=== PATIENT | male | born 1955 | race African-American/Black ===

== ENCOUNTER 2021-11-21 16:23 | Inpatient (IN) | payer MEDICARE, BC ==
[2021-11-21] MEDS ORDERED: MAGNESIUM CITRATE 300 ML BOTTLE PO PRN (18:33)
[2021-11-21] MEDS ORDERED: MAGNESIUM HYDROX 2400MG/30ML ORAL SUSPENSION 30 ML CUP PO PRN (18:33)
[2021-11-21] MEDS ORDERED: ONDANSETRON *ODT* 4 MG TABLET SL PRN (18:33)
[2021-11-21] MEDS ORDERED: ACETAMINOPHEN 325 MG TABLET (FP) PO PRN ×2 (18:33)
[2021-11-21] MEDS ORDERED: IBUPROFEN 400 MG TABLET (FP) PO PRN (18:33)
[2021-11-21] MEDS ORDERED: ALBUTEROL SO4 HFA INHALER IH PRN (18:33)
[2021-11-21] MEDS ORDERED: MENTHOL/PHENOL 1 EACH UD MM PRN (18:33)
[2021-11-21] MEDS ORDERED: LOPERAMIDE HCL 2 MG CAPSULE PO PRN (18:33)
[2021-11-21] MEDS ORDERED: MAG HYDROX/AL HYDROX/SIMETH 30 ML UNIT-DOSE CUP PO PRN (18:33)
[2021-11-21] MEDS ORDERED: BISMUTH SUBSALICYLATE 524 MG/30 ML PO PRN (18:33)
[2021-11-21] MEDS ORDERED: methaDONE HCL 10 MG TABLET (FOR DETOX USE ONLY) PO ONE (18:41)
[2021-11-21] MEDS ORDERED: cloNIDine HCL 0.1 MG TABLET PO PRN (18:41)
[2021-11-21 19:48] VITALS: BMI 24.7
[2021-11-21] MEDS: MELATONIN 5 MG TABLETS PO SCH (23:00)
[2021-11-21] MEDS: THIAMINE HCL 100 MG TABLET (FP) PO SCH (23:00)
[2021-11-22] MEDS: PRENATAL VITAMINS W/ FOLIC ACID TABLET (FP) PO SCH (11:47)
[2021-11-22 12:46] LABS: HEMATOCRIT 43.2 % (35.4-49); HEMOGLOBIN 13.6 GM/dL (11.7-16.9); MCH 28.9 pg (25.7-33.7); MCHC 31.6 g/dl (32.0-35.9); MEAN CELL VOLUME 91.4 fl (80-96); MEAN PLT VOLUME 8.2 fl (7.5-11.1); PLATELET COUNT 306 10^3/uL (134-434); RBC 4.73 M/mm3 (4.00-5.60); RDW 14.5 % (11.9-15.9)
[2021-11-22 13:14] LABS: CALCIUM 9.6 mg/dL (8.5-10.1)
[2021-11-22 13:15] LABS: ALBUMIN 3.4 g/dl (3.4-5.0); BLOOD UREA NITROGEN 13.4 mg/dL (7-18)
[2021-11-22 13:19] LABS: TOT PROT 7.1 g/dl (6.4-8.2)
[2021-11-22 13:20] LABS: BILIRUBIN,TOTAL 0.7 mg/dL (0.2-1)
[2021-11-22] MEDS: THIAMINE HCL 100 MG TABLET (FP) PO SCH (22:43)
[2021-11-22] MEDS: MELATONIN 5 MG TABLETS PO SCH (22:43)
[2021-11-22] MEDS: METHOCARBAMOL 500 MG TABLET PO PRN (22:43)
[2021-11-22] MEDS: hydrOXYzine PAMOATE 25 MG CAPSULE (FP) PO PRN (22:43)
[2021-11-23] MEDS ORDERED: methaDONE HCL 10 MG TABLET (FOR DETOX USE ONLY) PO ONE (10:00)
[2021-11-23 10:08] LABS: SARS-CoV-2 NAA Not Detected (Not Detected)
[2021-11-23] MEDS: PRENATAL VITAMINS W/ FOLIC ACID TABLET (FP) PO SCH (11:35)
[2021-11-23] MEDS: METHOCARBAMOL 500 MG TABLET PO PRN (11:35)
[2021-11-23] MEDS: hydrOXYzine PAMOATE 25 MG CAPSULE (FP) PO PRN (11:35)
[2021-11-23] MEDS: THIAMINE HCL 100 MG TABLET (FP) PO SCH (23:12)
[2021-11-23] MEDS: MELATONIN 5 MG TABLETS PO SCH (23:12)
[2021-11-24] MEDS: METHOCARBAMOL 500 MG TABLET PO PRN (01:01)
[2021-11-24] MEDS: hydrOXYzine PAMOATE 25 MG CAPSULE (FP) PO PRN (01:01)
[2021-11-24] MEDS: PRENATAL VITAMINS W/ FOLIC ACID TABLET (FP) PO SCH (10:04)
[2021-11-24 13:46] VITALS: BP 145/85; PULSE 57; TEMP 97.5
== END 2021-11-24 14:33 | disposition other institution (70) | DRG 897 ==
LOC: YASAS 16:23 → Y6N 19:09
PROVIDERS: ADMIT Allergy & Immunology; ATTEND Allergy & Immunology
PROC: HZ2ZZZZ Detoxification Services for Substance Abuse Treatment (ICD-10-PCS; principal; 2021-11-21)
DX: F11.23 Opioid dependence with withdrawal (principal); F14.20 Cocaine dependence, uncomplicated; F17.210 Nicotine dependence, cigarettes, uncomplicated; E78.00 Pure hypercholesterolemia, unspecified; J45.909 Unspecified asthma, uncomplicated
CPT/HCPCS: 36415; 80053; 85027; 86780; 87811; C9803; U0003; U0005

== ENCOUNTER 2021-11-24 14:46 | Inpatient (IN) | payer MEDICARE, BC ==
[2021-11-24] MEDS ORDERED: guaiFENesin 200 MG/10 ML 10 ML UNIT-DOSE CUPS PO PRN (15:22)
[2021-11-24] MEDS ORDERED: MENTHOL/PHENOL 1 EACH UD MM PRN (15:22)
[2021-11-24] MEDS ORDERED: MAGNESIUM HYDROX 2400MG/30ML ORAL SUSPENSION 30 ML CUP PO PRN (15:22)
[2021-11-24] MEDS ORDERED: MAGNESIUM CITRATE 300 ML BOTTLE PO PRN (15:22)
[2021-11-24] MEDS ORDERED: MAG HYDROX/AL HYDROX/SIMETH 30 ML UNIT-DOSE CUP PO PRN (15:22)
[2021-11-24] MEDS ORDERED: LOPERAMIDE HCL 2 MG CAPSULE PO PRN (15:22)
[2021-11-24] MEDS ORDERED: hydrOXYzine PAMOATE 25 MG CAPSULE (FP) PO PRN (15:22)
[2021-11-24] MEDS ORDERED: P-EPHED 60MG/TRIPROLIDI 2.5MG TABLET PO PRN (15:22)
[2021-11-24] MEDS ORDERED: NICOTINE 10 MG CARTRIDGE (INHALER) IH PRN (15:22)
[2021-11-24] MEDS: THIAMINE HCL 100 MG TABLET (FP) PO SCH (22:18)
[2021-11-24] MEDS: MELATONIN 5 MG TABLETS PO SCH (22:18)
[2021-11-25] MEDS: PRENATAL VITAMINS W/ FOLIC ACID TABLET (FP) PO SCH (10:40)
[2021-11-25] MEDS: NICOTINE 7 MG/24 HOURS TOPICAL PATCH TD SCH (10:40)
[2021-11-25] MEDS: MELATONIN 5 MG TABLETS PO SCH (21:25)
[2021-11-25] MEDS: THIAMINE HCL 100 MG TABLET (FP) PO SCH (21:25)
[2021-11-26] MEDS: PRENATAL VITAMINS W/ FOLIC ACID TABLET (FP) PO SCH (09:53)
[2021-11-26] MEDS: NICOTINE 7 MG/24 HOURS TOPICAL PATCH TD SCH (09:54)
[2021-11-26] MEDS ORDERED: TUBERCULIN PPD 5 TU/0.1ML VIAL ID ONE (11:50)
[2021-11-26] MEDS: MELATONIN 5 MG TABLETS PO SCH (21:33)
[2021-11-26] MEDS: THIAMINE HCL 100 MG TABLET (FP) PO SCH (21:33)
[2021-11-27] MEDS: NICOTINE 7 MG/24 HOURS TOPICAL PATCH TD SCH (10:17)
[2021-11-27] MEDS: PRENATAL VITAMINS W/ FOLIC ACID TABLET (FP) PO SCH (10:18)
[2021-11-27] MEDS: THIAMINE HCL 100 MG TABLET (FP) PO SCH (21:09)
[2021-11-27] MEDS: MELATONIN 5 MG TABLETS PO SCH (21:09)
[2021-11-28] MEDS: PRENATAL VITAMINS W/ FOLIC ACID TABLET (FP) PO SCH (09:40)
[2021-11-28] MEDS: NICOTINE 7 MG/24 HOURS TOPICAL PATCH TD SCH (09:41)
[2021-11-28] MEDS: MELATONIN 5 MG TABLETS PO SCH (21:33)
[2021-11-28] MEDS: THIAMINE HCL 100 MG TABLET (FP) PO SCH (21:33)
[2021-11-29] MEDS: NICOTINE 7 MG/24 HOURS TOPICAL PATCH TD SCH (09:18)
[2021-11-29] MEDS: PRENATAL VITAMINS W/ FOLIC ACID TABLET (FP) PO SCH (09:18)
[2021-11-29] MEDS: MELATONIN 5 MG TABLETS PO SCH (21:02)
[2021-11-29] MEDS: THIAMINE HCL 100 MG TABLET (FP) PO SCH (21:02)
[2021-11-30] MEDS: PRENATAL VITAMINS W/ FOLIC ACID TABLET (FP) PO SCH (09:11)
[2021-11-30] MEDS: NICOTINE 7 MG/24 HOURS TOPICAL PATCH TD SCH (09:11)
[2021-11-30] MEDS: MELATONIN 5 MG TABLETS PO SCH (21:39)
[2021-11-30] MEDS: THIAMINE HCL 100 MG TABLET (FP) PO SCH (21:39)
[2021-12-01] MEDS: NICOTINE 7 MG/24 HOURS TOPICAL PATCH TD SCH (09:49)
[2021-12-01] MEDS: PRENATAL VITAMINS W/ FOLIC ACID TABLET (FP) PO SCH (09:49)
[2021-12-01] MEDS: MELATONIN 5 MG TABLETS PO SCH (21:16)
[2021-12-01] MEDS: THIAMINE HCL 100 MG TABLET (FP) PO SCH (21:16)
[2021-12-02] MEDS: PRENATAL VITAMINS W/ FOLIC ACID TABLET (FP) PO SCH (09:16)
[2021-12-02] MEDS: NICOTINE 7 MG/24 HOURS TOPICAL PATCH TD SCH (09:17)
[2021-12-02] MEDS: THIAMINE HCL 100 MG TABLET (FP) PO SCH (21:24)
[2021-12-02] MEDS: MELATONIN 5 MG TABLETS PO SCH (21:24)
[2021-12-02] MEDS: IBUPROFEN 400 MG TABLET (FP) PO PRN (21:25)
[2021-12-03] MEDS: NICOTINE 7 MG/24 HOURS TOPICAL PATCH TD SCH (09:41)
[2021-12-03] MEDS: PRENATAL VITAMINS W/ FOLIC ACID TABLET (FP) PO SCH (09:41)
[2021-12-03] MEDS: THIAMINE HCL 100 MG TABLET (FP) PO SCH (21:21)
[2021-12-03] MEDS: MELATONIN 5 MG TABLETS PO SCH (21:21)
[2021-12-04] MEDS: NICOTINE 7 MG/24 HOURS TOPICAL PATCH TD SCH (10:10)
[2021-12-04] MEDS: PRENATAL VITAMINS W/ FOLIC ACID TABLET (FP) PO SCH (10:10)
[2021-12-04] MEDS: THIAMINE HCL 100 MG TABLET (FP) PO SCH (21:24)
[2021-12-04] MEDS: MELATONIN 5 MG TABLETS PO SCH (21:24)
[2021-12-05] MEDS: PRENATAL VITAMINS W/ FOLIC ACID TABLET (FP) PO SCH (10:04)
[2021-12-05] MEDS: NICOTINE 7 MG/24 HOURS TOPICAL PATCH TD SCH (10:04)
[2021-12-05] MEDS: MELATONIN 5 MG TABLETS PO SCH (21:49)
[2021-12-05] MEDS: THIAMINE HCL 100 MG TABLET (FP) PO SCH (21:49)
[2021-12-06] MEDS: PRENATAL VITAMINS W/ FOLIC ACID TABLET (FP) PO SCH (10:19)
[2021-12-06] MEDS: NICOTINE 7 MG/24 HOURS TOPICAL PATCH TD SCH (10:20)
[2021-12-06] MEDS: MELATONIN 5 MG TABLETS PO SCH (21:48)
[2021-12-06] MEDS: THIAMINE HCL 100 MG TABLET (FP) PO SCH (21:49)
[2021-12-07] MEDS: PRENATAL VITAMINS W/ FOLIC ACID TABLET (FP) PO SCH (09:17)
[2021-12-07] MEDS: NICOTINE 7 MG/24 HOURS TOPICAL PATCH TD SCH (09:17)
[2021-12-07] MEDS: MELATONIN 5 MG TABLETS PO SCH (21:23)
[2021-12-07] MEDS: THIAMINE HCL 100 MG TABLET (FP) PO SCH (21:23)
[2021-12-08] MEDS: PRENATAL VITAMINS W/ FOLIC ACID TABLET (FP) PO SCH (09:52)
[2021-12-08] MEDS: NICOTINE 7 MG/24 HOURS TOPICAL PATCH TD SCH (09:52)
[2021-12-08] MEDS: MELATONIN 5 MG TABLETS PO SCH (21:17)
[2021-12-08] MEDS: THIAMINE HCL 100 MG TABLET (FP) PO SCH (21:17)
[2021-12-09] MEDS: PRENATAL VITAMINS W/ FOLIC ACID TABLET (FP) PO SCH (10:04)
[2021-12-09] MEDS: NICOTINE 7 MG/24 HOURS TOPICAL PATCH TD SCH (10:04)
[2021-12-09] MEDS: THIAMINE HCL 100 MG TABLET (FP) PO SCH (21:14)
[2021-12-09] MEDS: MELATONIN 5 MG TABLETS PO SCH (21:14)
[2021-12-10] MEDS: PRENATAL VITAMINS W/ FOLIC ACID TABLET (FP) PO SCH (09:57)
[2021-12-10] MEDS: NICOTINE 7 MG/24 HOURS TOPICAL PATCH TD SCH (09:58)
[2021-12-10] MEDS: THIAMINE HCL 100 MG TABLET (FP) PO SCH (21:04)
[2021-12-10] MEDS: MELATONIN 5 MG TABLETS PO SCH (21:04)
[2021-12-11] MEDS: ACETAMINOPHEN 325 MG TABLET (FP) PO PRN (07:23)
[2021-12-11] MEDS ORDERED: ALBUTEROL SO4 HFA INHALER IH PRN (09:47)
[2021-12-11] MEDS: NICOTINE 7 MG/24 HOURS TOPICAL PATCH TD SCH (10:05)
[2021-12-11] MEDS: TAMSULOSIN HCL 0.4 MG CAP PO SCH (10:08)
[2021-12-11] MEDS: PRENATAL VITAMINS W/ FOLIC ACID TABLET (FP) PO SCH (10:08)
[2021-12-11] MEDS: THIAMINE HCL 100 MG TABLET (FP) PO SCH (21:01)
[2021-12-11] MEDS: MELATONIN 5 MG TABLETS PO SCH (21:01)
[2021-12-12] MEDS: TAMSULOSIN HCL 0.4 MG CAP PO SCH (09:48)
[2021-12-12] MEDS: PRENATAL VITAMINS W/ FOLIC ACID TABLET (FP) PO SCH (09:48)
[2021-12-12] MEDS: NICOTINE 7 MG/24 HOURS TOPICAL PATCH TD SCH (09:48)
[2021-12-12 14:08] LABS: SARS-CoV-2 NAA Not Detected (Not Detected)
[2021-12-12] MEDS: IBUPROFEN 400 MG TABLET (FP) PO PRN (14:40)
[2021-12-12] MEDS: BENZOCAINE 20 % GEL TUBE MM SCH ×2 (14:53→21:31)
[2021-12-12] MEDS: MELATONIN 5 MG TABLETS PO SCH (21:31)
[2021-12-12] MEDS: THIAMINE HCL 100 MG TABLET (FP) PO SCH (21:31)
[2021-12-13] MEDS: BENZOCAINE 20 % GEL TUBE MM SCH ×3 (03:30→15:35)
[2021-12-13] MEDS: NICOTINE 7 MG/24 HOURS TOPICAL PATCH TD SCH (09:54)
[2021-12-13] MEDS: PRENATAL VITAMINS W/ FOLIC ACID TABLET (FP) PO SCH (09:54)
[2021-12-13] MEDS: TAMSULOSIN HCL 0.4 MG CAP PO SCH (09:54)
[2021-12-13] MEDS: MELATONIN 5 MG TABLETS PO SCH (23:27)
[2021-12-13] MEDS: THIAMINE HCL 100 MG TABLET (FP) PO SCH (23:27)
[2021-12-14] MEDS: BENZOCAINE 20 % GEL TUBE MM SCH ×5 (06:26→23:11)
[2021-12-14] MEDS: TAMSULOSIN HCL 0.4 MG CAP PO SCH (09:57)
[2021-12-14] MEDS: PRENATAL VITAMINS W/ FOLIC ACID TABLET (FP) PO SCH (09:57)
[2021-12-14] MEDS: NICOTINE 7 MG/24 HOURS TOPICAL PATCH TD SCH (09:58)
[2021-12-14] MEDS: ACETAMINOPHEN 325 MG TABLET (FP) PO PRN (14:04)
[2021-12-14] MEDS: THIAMINE HCL 100 MG TABLET (FP) PO SCH (22:12)
[2021-12-14] MEDS: MELATONIN 5 MG TABLETS PO SCH (23:12)
[2021-12-15] MEDS: BENZOCAINE 20 % GEL TUBE MM SCH ×4 (03:30→21:36)
[2021-12-15] MEDS: TAMSULOSIN HCL 0.4 MG CAP PO SCH (09:38)
[2021-12-15] MEDS: PRENATAL VITAMINS W/ FOLIC ACID TABLET (FP) PO SCH (09:38)
[2021-12-15] MEDS: NICOTINE 7 MG/24 HOURS TOPICAL PATCH TD SCH (09:39)
[2021-12-15] MEDS: THIAMINE HCL 100 MG TABLET (FP) PO SCH (21:36)
[2021-12-15] MEDS: MELATONIN 5 MG TABLETS PO SCH (21:36)
[2021-12-16] MEDS: BENZOCAINE 20 % GEL TUBE MM SCH ×4 (06:22→21:20)
[2021-12-16] MEDS: TAMSULOSIN HCL 0.4 MG CAP PO SCH (09:46)
[2021-12-16] MEDS: PRENATAL VITAMINS W/ FOLIC ACID TABLET (FP) PO SCH (09:47)
[2021-12-16] MEDS: NICOTINE 7 MG/24 HOURS TOPICAL PATCH TD SCH (09:47)
[2021-12-16] MEDS: THIAMINE HCL 100 MG TABLET (FP) PO SCH (21:20)
[2021-12-16] MEDS: MELATONIN 5 MG TABLETS PO SCH (21:20)
[2021-12-17] MEDS: BENZOCAINE 20 % GEL TUBE MM SCH ×4 (03:35→21:31)
[2021-12-17] MEDS: PRENATAL VITAMINS W/ FOLIC ACID TABLET (FP) PO SCH (09:58)
[2021-12-17] MEDS: NICOTINE 7 MG/24 HOURS TOPICAL PATCH TD SCH (09:58)
[2021-12-17] MEDS: TAMSULOSIN HCL 0.4 MG CAP PO SCH (09:58)
[2021-12-17] MEDS: THIAMINE HCL 100 MG TABLET (FP) PO SCH (21:31)
[2021-12-17] MEDS: MELATONIN 5 MG TABLETS PO SCH (21:31)
[2021-12-18] MEDS: BENZOCAINE 20 % GEL TUBE MM SCH ×4 (03:30→21:31)
[2021-12-18] MEDS: TAMSULOSIN HCL 0.4 MG CAP PO SCH (10:14)
[2021-12-18] MEDS: PRENATAL VITAMINS W/ FOLIC ACID TABLET (FP) PO SCH (10:14)
[2021-12-18] MEDS: NICOTINE 7 MG/24 HOURS TOPICAL PATCH TD SCH (10:15)
[2021-12-18] MEDS: MELATONIN 5 MG TABLETS PO SCH (21:30)
[2021-12-18] MEDS: THIAMINE HCL 100 MG TABLET (FP) PO SCH (21:30)
[2021-12-19] MEDS: BENZOCAINE 20 % GEL TUBE MM SCH ×4 (03:30→21:23)
[2021-12-19 06:40] VITALS: TEMP 97.1
[2021-12-19] MEDS: TAMSULOSIN HCL 0.4 MG CAP PO SCH (10:06)
[2021-12-19] MEDS: NICOTINE 7 MG/24 HOURS TOPICAL PATCH TD SCH (10:07)
[2021-12-19] MEDS: PRENATAL VITAMINS W/ FOLIC ACID TABLET (FP) PO SCH (10:07)
[2021-12-19] MEDS: THIAMINE HCL 100 MG TABLET (FP) PO SCH (21:22)
[2021-12-19] MEDS: MELATONIN 5 MG TABLETS PO SCH (21:22)
[2021-12-20] MEDS: BENZOCAINE 20 % GEL TUBE MM SCH ×4 (03:30→21:35)
[2021-12-20] MEDS: TAMSULOSIN HCL 0.4 MG CAP PO SCH (09:56)
[2021-12-20] MEDS: PRENATAL VITAMINS W/ FOLIC ACID TABLET (FP) PO SCH (09:56)
[2021-12-20] MEDS: NICOTINE 7 MG/24 HOURS TOPICAL PATCH TD SCH (09:57)
[2021-12-20] MEDS: THIAMINE HCL 100 MG TABLET (FP) PO SCH (21:31)
[2021-12-20] MEDS: MELATONIN 5 MG TABLETS PO SCH (21:31)
[2021-12-21] MEDS: BENZOCAINE 20 % GEL TUBE MM SCH ×4 (03:35→21:09)
[2021-12-21 06:38] VITALS: BP 123/76; PULSE 79
[2021-12-21] MEDS: TAMSULOSIN HCL 0.4 MG CAP PO SCH (09:49)
[2021-12-21] MEDS: NICOTINE 7 MG/24 HOURS TOPICAL PATCH TD SCH (09:49)
[2021-12-21] MEDS: PRENATAL VITAMINS W/ FOLIC ACID TABLET (FP) PO SCH (09:49)
[2021-12-21] MEDS: MELATONIN 5 MG TABLETS PO SCH (21:07)
[2021-12-21] MEDS: THIAMINE HCL 100 MG TABLET (FP) PO SCH (21:07)
[2021-12-22] MEDS: BENZOCAINE 20 % GEL TUBE MM SCH ×2 (03:17→09:15)
[2021-12-22] MEDS: TAMSULOSIN HCL 0.4 MG CAP PO SCH (09:15)
[2021-12-22] MEDS: NICOTINE 7 MG/24 HOURS TOPICAL PATCH TD SCH (09:15)
[2021-12-22] MEDS: PRENATAL VITAMINS W/ FOLIC ACID TABLET (FP) PO SCH (09:15)
== END 2021-12-22 09:30 | disposition home or self-care (01) | DRG 895 ==
LOC: YASAS 14:46 → Y3E 14:48
PROVIDERS: ADMIT Allergy & Immunology; ATTEND Allergy & Immunology
PROC: HZ42ZZZ Group Counseling for Substance Abuse Treatment, Cognitive-Behavioral (ICD-10-PCS; principal; 2021-11-24)
DX: F11.20 Opioid dependence, uncomplicated (principal); F17.210 Nicotine dependence, cigarettes, uncomplicated; E78.00 Pure hypercholesterolemia, unspecified; J45.909 Unspecified asthma, uncomplicated; N40.0 Benign prostatic hyperplasia without lower urinary tract symptoms
CPT/HCPCS: C9803-CS; U0003; U0005